=== PATIENT | female | born 1955 | race Caucasian/White ===

== ENCOUNTER 2016-10-21 18:50 | Emergency (ER) | payer MEDICAID, SELFPAY ==
[2016-10-21] MEDS ORDERED: diphenhydrAMINE 50 MG Cap PO ONE (19:39)
[2016-10-21] MEDS ORDERED: Ketorolac 60 MG/2 ML SDV IM ONE (19:39)
[2016-10-21] MEDS ORDERED: Ondansetron 4 MG Tab.DIS PO ONE (19:39)
[2016-10-21 21:10] VITALS: BP 130/78
--- NOTE | 2016-10-24 09:23 | ER ---
DATE SEEN: 10/21/2016 HISTORY OF PRESENT ILLNESS: The patient is a 61-year-old female, who comes to the emergency department with migraine. She has history of chronic migraines. Says she has tried her usual medications without benefit. This was started this morning, came on gradually. It has persisted. Does have some photophobia. Denies any nausea, vomiting, fevers, or chills. Tried taking Excedrin Migraine without relief. MEDICATIONS: 1. Celebrex. 2. Allopurinol. 3. Losartan. 4. Cymbalta. 5. Elavil. 6. Metformin. 7. Lipitor. ALLERGIES: Nitrofurantoin. PAST MEDICAL HISTORY: Headache, back pain, upper respiratory infection, depression. REVIEW OF SYSTEMS: RESPIRATORY: No shortness of breath. NEUROLOGICAL: No focal deficits. PHYSICAL EXAMINATION: VITAL SIGNS: She is afebrile. Vitally stable. HEENT: Pupils equal, round, react to light. Extraocular muscles intact. Funduscopic exam within normal limits. Oropharyngeal region clear. NECK: Supple. No lymphadenopathy. Full range of motion. EMERGENCY DEPARTMENT COURSE: She received 60 mg Toradol IM, Zofran 4 mg, and Benadryl 50 mg with improvement in her symptoms. ASSESSMENT: Acute on chronic migraine. PLAN: Continue current medications. Work on stress reduction. Follow up as needed. /[id number] NGA/TIESHA
== END 2016-10-21 20:00 | disposition home or self-care (01) ==
LOC: FB.ED 18:50
DX: G43.909 Migraine, unspecified, not intractable, without status migrainosus (principal); Z88.8 Allergy status to other drugs, medicaments and biological substances
CPT/HCPCS: 96372; 99282; A9270; J1885

== ENCOUNTER 2017-04-29 10:51 | Emergency (ER) | payer MEDICARE, OTHER ==
--- NOTE | 2017-04-29 11:17 | EDM.PDOC ---
ED HPI GENERAL MEDICAL PROBLEM - General Stated Complaint: BLOOD PRESSURE HIGH, Time Seen by Provider: 04/29/17 10:51 Source of Information: Reports: Patient History Limitations: Reports: No Limitations - History of Present Illness INITIAL COMMENTS - FREE TEXT/NARRATIVE: 61 years old w f came to the ed due to chronic low back pain and her BP measured 220/123 at home. She went to the clinic and sent to the ED for further care. On arrival the ed, her BP was improving. Pt has chronic low back pain and a h/o Kidney stones. No other acute medical issues. BP 143/83 RR 16 Pulse ox 97 Temp 36.5 pulse 84 Onset Date: 04/26/17 Onset Time: 06:00 Duration: Day(s):, Intermittent Location: Reports: Back Quality: Reports: Ache Severity: Mild Improves with: Reports: Rest Worsens with: Reports: Movement Context: Reports: Other (chronic back pain, elevated BP at home.) Associated Symptoms: Reports: No Other Symptoms Generalized Pain Score (Numeric/FACES): 5 - Related Data Allergies Allergy/AdvReac Type Severity Reaction Status Date / Time nitrofurantoin Allergy Rash Verified 04/29/17 12:22 [From Macrobid] nitrofurantoin Allergy Rash Verified 04/29/17 12:22 macrocrystalline [From Macrobid] Sulfa (Sulfonamide Allergy Rash Verified 04/29/17 12:22 Antibiotics) Home Meds: Home Meds Losartan/Hydrochlorothiazide [Losartan-HCTZ 50-12.5 MG] 1 tab PO DAILY 02/02/13 [History] Timolol Maleate [Timoptic-XE 0.5% Ophth Gel] 1 drop EYEBOTH BID 02/02/13 [ History] metFORMIN [Glucophage] 1 tab PO BID 02/02/13 [History] atorvaSTATin [Lipitor] 80 mg PO DAILY 01/29/14 [History] Amitriptyline [Elavil] 25 mg PO BEDTIME PRN 06/06/15 [History] Allopurinol [Zyloprim] 300 mg PO DAILY 10/21/16 [History] Past Medical History HEENT History: Reports: Cataract, Glaucoma, Impaired Vision Cardiovascular History: Reports: High Cholesterol, Hypertension Respiratory History: Reports: COPD Genitourinary History: Reports: Renal Calculus 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: Musculoskeletal History: Reports: Fibromyalgia Psychiatric History: Reports: Depression Endocrine/Metabolic History: Reports: Diabetes, Type II Social & Family History - Family History Family Medical History: Noncontributory - Tobacco Use Smoking Status *Q: Current Every Day Smoker Years of Tobacco use: 25 Packs/Tins Daily: 0.6 - Caffeine Use Caffeine Use: Reports: Coffee, Soda - Alcohol Use Days Per Week of Alcohol Use: 0 - Recreational Drug Use Recreational Drug Use: No ED ROS GENERAL - Review of Systems Review Of Systems: See Below Constitutional: Reports: No Symptoms HEENT: Reports: No Symptoms Respiratory: Reports: No Symptoms Cardiovascular: Reports: No Symptoms Endocrine: Reports: No Symptoms GI/Abdominal: Reports: No Symptoms : Reports: No Symptoms Musculoskeletal: Reports: Back Pain Skin: Reports: No Symptoms Neurological: Reports: No Symptoms Psychiatric: Reports: No Symptoms Hematologic/Lymphatic: Reports: No Symptoms Immunologic: Reports: No Symptoms ED EXAM,LOWER BACK PAIN/INJURY - Physical Exam Exam: See Below Exam Limited By: No Limitations General Appearance: Alert, WD/WN, No Apparent Distress Eye Exam: Bilateral Eye: Normal Inspection Ears: Normal External Exam, Normal Canal Nose: Normal Inspection Throat/Mouth: Normal Inspection Head: Atraumatic, Normocephalic Neck: Normal Inspection, Supple Respiratory/Chest: No Respiratory Distress, Lungs Clear, Normal Breath Sounds Cardiovascular: Normal Peripheral Pulses, Regular Rate, Rhythm GI/Abdominal: Normal Bowel Sounds (Female) Exam: Deferred Rectal (Female) Exam: Deferred Back Exam: Normal Inspection, Full Range of Motion Extremities: Normal Inspection, Normal Range of Motion, Non-Tender, No Pedal Edema Neurological: Alert, Normal Mood/Affect, Normal Dorsiflexion, CN II-XII Intact, Normal Plantar Flexion, Normal Gait, No Motor/Sensory Deficits, Oriented x 3 Psychiatric: Normal Affect, Normal Mood Skin Exam: Warm, Dry, Intact, Normal Color, No Rash Lymphatic: No Adenopathy Course - Vital Signs Text/Narrative:: 61 years old w f came to the ed due to chronic low back pain and her BP measured 220/123 at home. She went to the clinic and sent to the ED for further care. On arrival the ed, her BP was improving. Pt has chronic low back pain and a h/o Kidney stones. No other acute medical issues. BP 143/83 RR 16 Pulse ox 97 Temp 36.5 pulse 84 PE: Mid upper back pain, chronic Labs: UA neg for UTI and hematuria Impression: BP check, NIDDM, Chronic low back pain. Tx: None Reexam: Improved, BP was 135/87 on D/C Plan: D/C with instruction Last Recorded V/S: Last Vital Signs Temp 36.6 C 04/29/17 12:25 Pulse 77 04/29/17 12:45 Resp 14 04/29/17 12:45 BP 136/94 H 04/29/17 12:45 Pulse Ox 97 04/29/17 12:45 - Orders/Labs/Meds Labs: Laboratory Tests 04/29/17 Range/Units 11:45 Urine Color Yellow (YELLOW) Urine Appearance Slightly cloudy (CLEAR) Urine pH 5.0 (5.0-6.5) Ur Specific Ord 1.020 (1.010-1.025) Urine Protein Negative (NEGATIVE) mg/dL Urine Glucose (UA) Normal (NEGATIVE) mg/dL Urine Ketones Negative (NEGATIVE) mg/dL Urine Occult Blood Negative (NEGATIVE) Urine Nitrite Negative (NEGATIVE) Urine Bilirubin Negative (NEGATIVE) Urine Urobilinogen Normal (NEGATIVE) mg/dL Ur Leukocyte Esterase Negative (NEGATIVE) Urine WBC 0-5 (0) Ur Squamous Epith Cells Many H (NS,R,O) Urine Bacteria Moderate H (NS) Urine Yeast Few H (NS) Departure - Departure Time of Disposition: 12:52 Disposition: Home, Self-Care 01 Condition: Good Clinical Impression: Chronic back pain Qualifiers: Back pain location: thoracic back pain Back pain laterality: midline Qualified Code(s): M54.6 - Pain in thoracic spine - Discharge Information Referrals: Chris St MD [Primary Care Provider] - Forms: ED Department Discharge Additional Instructions: Please cont your current meds. please f/u, come back if your symptoms get worse acutely
[2017-04-29 12:46] VITALS: BP 136/94
== END 2017-04-29 12:55 | disposition home or self-care (01) ==
LOC: FB.ED 10:51
DX: M54.6 Pain in thoracic spine (principal); G89.29 Other chronic pain; I10 Essential (primary) hypertension; E78.00 Pure hypercholesterolemia, unspecified; E11.9 Type 2 diabetes mellitus without complications; F17.210 Nicotine dependence, cigarettes, uncomplicated; Z87.442 Personal history of urinary calculi; Z88.1 Allergy status to other antibiotic agents; Z88.2 Allergy status to sulfonamides; Z79.84 Long term (current) use of oral hypoglycemic drugs; Z79.899 Other long term (current) drug therapy
CPT/HCPCS: 81001; 99283

== ENCOUNTER 2017-07-21 20:47 | Emergency (ER) | payer MEDICARE, OTHER ==
[2017-07-21] MEDS ORDERED: Sodium Chloride 0.9% 1,000 ML IV SCH (21:05)
[2017-07-21 22:20] VITALS: BP 134/94
--- NOTE | 2017-07-23 12:44 | CR ---
INDICATION: Heart block. CHEST: An upright AP portable view of the chest revealed the heart to be enlarged. The aorta is tortuous with calcification in the arch. Overlying EKG leads are noted. A definite active infiltrate or effusion was not identified. Upper lung field pulmonary vasculature is slightly prominent, raising question of a mild or early CHF. This should be correlated clinically. Examination was compared with 04/19/2010 PA view. IMPRESSION: 1. No definite acute process - the possibility of mild or early CHF is a consideration. 2. ASHD with cardiomegaly. 3. Exogenous obesity. MTDD
--- NOTE | 2017-07-23 13:36 | ER ---
DATE SEEN: 07/21/2017 TIME SEEN: 2130 hours. CHIEF COMPLAINT: Dizziness. HISTORY OF PRESENT ILLNESS: This is a 62-year-old female known to me, who came in with dizziness, sudden onset. She felt like she passed out when she went to use the bathroom. She has type 2 diabetes, previously stable, tobacco abuse syndrome, and hypertension, that have been stable. She also has fibromyalgia. REVIEW OF SYSTEMS: She has no chest pain, no shortness of breath. MEDICATIONS: Reviewed. ALLERGIES: Reviewed. SOCIAL HISTORY: Smoker. FAMILY HISTORY: Noncontributory. PHYSICAL EXAMINATION: VITAL SIGNS: Blood pressure is 127/49, pulse 26, temperature 97.6, oxygenation 98% on room air. ENT: Negative. NECK: Supple. CARDIOVASCULAR: Bradycardia. No rales. No JVD. No extremity edema. No abdominal bruits. MENTAL STATUS: Alert. SKIN: No pallor or jaundice. No signs of shock. LABORATORIES: White cell count 12.5. Electrolytes are normal. Troponin is less than 0.17. EK-lead surface EKG revealed Mobitz type II AV block. IMPRESSION: Mobitz type II AV block. PLAN: 1 L of normal saline was given. Pacemaker pads were in place. I called [facility] and sent the patient for further treatment, perhaps a pacemaker placement. /[id number] VILMA/TIESHA
== END 2017-07-21 22:15 ==
LOC: FB.ED 20:47
DX: I44.1 Atrioventricular block, second degree (principal); I10 Essential (primary) hypertension; E11.9 Type 2 diabetes mellitus without complications; M79.7 Fibromyalgia; F17.200 Nicotine dependence, unspecified, uncomplicated
CPT/HCPCS: 36415; 71045; 80053; 82962; 83880; 84443; 84484; 85025; 93005; 93010; 96360; 99284; 99285; J7040

== ENCOUNTER 2017-08-01 15:17 | Emergency (ER) | payer MEDICARE, OTHER ==
--- NOTE | 2017-08-01 15:35 | EDM.PDOC ---
ED HPI GENERAL MEDICAL PROBLEM - General Stated Complaint: HIVES Time Seen by Provider: 08/01/17 15:17 Source of Information: Reports: Patient, Family History Limitations: Reports: No Limitations - History of Present Illness INITIAL COMMENTS - FREE TEXT/NARRATIVE: 62 y.o.w.,f with CAD on blood thinner, came to the ed due to a generalized rash since Sunday. Pt was seen by her PMD and Vistaril and cortison were prescribed. Pt came to the ed because he symptoms got worse slightly worse since Sunday. Pt did not have C/P.N/V/D, dizziness or lightheadedness, SOB or any other acute medical issues. BP 136/68, Temp 97.9 pulse ox 97% on RA. HR 86 RR 16. 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 - Related Data Allergies Allergy/AdvReac Type Severity Reaction Status Date / Time nitrofurantoin Allergy Rash Verified 07/21/17 21:31 [From Macrobid] nitrofurantoin Allergy Rash Verified 07/21/17 21:31 macrocrystalline [From Macrobid] Sulfa (Sulfonamide Allergy Rash Verified 07/21/17 21:31 Antibiotics) Home Meds: Home Meds Losartan/Hydrochlorothiazide [Losartan-HCTZ 50-12.5 MG] 1 tab PO DAILY 02/02/13 [History] Timolol Maleate [Timoptic-XE 0.5% Ophth Gel] 1 drop EYEBOTH BID 02/02/13 [ History] metFORMIN [Glucophage] 1 tab PO BID 02/02/13 [History] Allopurinol [Zyloprim] 300 mg PO DAILY 10/21/16 [History] Simvastatin [Zocor] 80 mg PO BEDTIME 07/21/17 [History] hydrOXYzine Pamoate [Vistaril] 100 mg PO BEDTIME PRN #10 cap 08/01/17 [Rx] Past Medical History HEENT History: Reports: Cataract, Glaucoma, Impaired Vision Cardiovascular History: Reports: High Cholesterol, Hypertension Respiratory History: Reports: COPD Genitourinary History: Reports: Renal Calculus 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: Musculoskeletal History: Reports: Fibromyalgia Psychiatric History: Reports: Depression Endocrine/Metabolic History: Reports: Diabetes, Type II - Infectious Disease History Infectious Disease History: Reports: Chicken Pox, Shingles - Past Surgical History Female Surgical History: Reports: Hysterectomy Social & Family History - Family History Family Medical History: Noncontributory - Tobacco Use Smoking Status *Q: Current Every Day Smoker Years of Tobacco use: 42 Packs/Tins Daily: 1 - Caffeine Use Caffeine Use: Reports: Coffee - Alcohol Use Days Per Week of Alcohol Use: 0 - Recreational Drug Use Recreational Drug Use: No ED ROS GENERAL - Review of Systems Review Of Systems: See Below Constitutional: Reports: No Symptoms HEENT: Reports: No Symptoms Respiratory: Reports: No Symptoms Cardiovascular: Reports: No Symptoms Endocrine: Reports: No Symptoms GI/Abdominal: Reports: No Symptoms : Reports: No Symptoms Musculoskeletal: Reports: No Symptoms Skin: Reports: Pruritis, Rash Neurological: Reports: No Symptoms Psychiatric: Reports: No Symptoms Hematologic/Lymphatic: Reports: No Symptoms Immunologic: Reports: No Symptoms ED EXAM, SKIN/RASH Exam: See Below Exam Limited By: No Limitations General Appearance: Alert, WD/WN, No Apparent Distress Eye Exam: Bilateral Eye: Normal Inspection Ears: Normal External Exam Nose: Normal Inspection Throat/Mouth: Normal Inspection, Normal Lips Head: Atraumatic, Normocephalic Neck: Normal Inspection, Supple, Non-Tender Respiratory/Chest: No Respiratory Distress, Lungs Clear, Normal Breath Sounds, No Accessory Muscle Use, Chest Non-Tender Cardiovascular: Normal Peripheral Pulses, Regular Rate, Rhythm, No Edema, No Gallop, No JVD Peripheral Pulses: 1+: Brachial (L) GI/Abdominal: Normal Bowel Sounds, Soft, Non-Tender (Female) Exam: Deferred Rectal (Female) Exam: Deferred Back Exam: Normal Inspection, Full Range of Motion Extremities: Normal Inspection, Normal Range of Motion, Non-Tender, No Pedal Edema Neurological: Alert, Oriented, CN II-XII Intact, Normal Cognition, Normal Gait, No Motor/Sensory Deficits Psychiatric: Normal Affect, Normal Mood Skin: Erythema Location, Skin: Generalized Characteristics: Urticarial Lymphatic: No Adenopathy Course - Vital Signs Text/Narrative:: 62 y.o.w.,f with CAD on blood thinner, came to the ed due to a generalized rash since Sunday. Pt was seen by her PMD and Vistaril and cortison were prescribed. Pt came to the ed because he symptoms got worse slightly worse since Sunday. Pt did not have C/P.N/V/D, dizziness or lightheadedness, SOB or any other acute medical issues. BP 136/68, Temp 97.9 pulse ox 97% on RA. HR 86 RR 16. PE: Urticarial Rash, generalized Impression: Urticarial rash, cause not determined. Tx: Vistaril 50mg IM Reexam: Improved Plan: D/C with instructions - Orders/Labs/Meds Meds: Medications Discontinued Medications Generic Name Dose Route Start Last Admin Trade Name Freq PRN Reason Stop Dose Admin Hydroxyzine HCl 50 mg 08/01/17 15:34 08/01/17 15:51 Vistaril IM 08/01/17 15:35 50 mg ONETIME ONE Administration Departure - Departure Time of Disposition: 15:46 Disposition: Home, Self-Care 01 Condition: Good Clinical Impression: Urticaria - Discharge Information Prescriptions: hydrOXYzine Pamoate [Vistaril] 100 mg PO BEDTIME PRN #10 cap PRN Reason: itch, rash Referrals: Chris St MD [Primary Care Provider] - Additional Instructions: Please increase water intake, please take the meds as recommended, please follow up with dermatology if the symptoms do not get better. Please come back to the ED if your symptoms get worse acutely.
[2017-08-01] MEDS: hydrOXYzine HCl 50 MG/ML SDV IM ONE (15:51)
[2017-08-01 20:05] VITALS: BP 136/68
== END 2017-08-01 16:15 | disposition home or self-care (01) ==
LOC: FB.ED 15:17
DX: L50.9 Urticaria, unspecified (principal); E78.00 Pure hypercholesterolemia, unspecified; I10 Essential (primary) hypertension; E11.9 Type 2 diabetes mellitus without complications; J44.9 Chronic obstructive pulmonary disease, unspecified; F17.210 Nicotine dependence, cigarettes, uncomplicated; Z79.84 Long term (current) use of oral hypoglycemic drugs; Z88.8 Allergy status to other drugs, medicaments and biological substances; Z88.2 Allergy status to sulfonamides; Z79.899 Other long term (current) drug therapy
CPT/HCPCS: 96372; 99282; J3410

== ENCOUNTER 2018-02-12 17:46 | Emergency (ER) | payer MEDICARE, OTHER ==
--- NOTE | 2018-02-12 18:34 | EDM.PDOC ---
ED HPI GENERAL MEDICAL PROBLEM - General Chief Complaint: Gastrointestinal Problem Stated Complaint: BLACK STOOLS Time Seen by Provider: 02/12/18 18:15 Source of Information: Reports: Patient History Limitations: Reports: No Limitations - History of Present Illness INITIAL COMMENTS - FREE TEXT/NARRATIVE: Viola reports diarrhea with black appearing stools over the past 4 days since starting a Z marilu 5 days ago for a bronchitis. Stools were stringy in texture, although semiformed today. Her chest congestion has resolved with the antibx. There was no other known exposure, fever, chills, nausea, vomiting, or constipation. She has been taking Lomotil for sxs relief. A SFOB was neg in the ED. - Related Data Allergies Allergy/AdvReac Type Severity Reaction Status Date / Time nitrofurantoin Allergy Rash Verified 02/12/18 18:05 [From Macrobid] nitrofurantoin Allergy Rash Verified 02/12/18 18:05 macrocrystalline [From Macrobid] Sulfa (Sulfonamide Allergy Rash Verified 02/12/18 18:05 Antibiotics) Home Meds: Home Meds Timolol Maleate [Timoptic-XE 0.5% Ophth Gel] 1 drop EYEBOTH DAILY 02/02/13 [ History] metFORMIN [Glucophage] 1 tab PO BID 02/02/13 [History] Allopurinol [Zyloprim] 300 mg PO DAILY 10/21/16 [History] hydrOXYzine pamoate [Vistaril] 100 mg PO BEDTIME PRN #10 cap 08/01/17 [Rx] Aspirin 81 mg PO DAILY 08/06/17 [History] Carvedilol 6.25 mg PO BID 08/06/17 [History] Cholecalciferol (Vitamin D3) [Vitamin D3] 2,000 unit PO DAILY 08/06/17 [History] Clopidogrel Bisulfate [Clopidogrel] 75 mg PO DAILY 08/06/17 [History] DULoxetine [Cymbalta] 30 mg PO DAILY 08/06/17 [History] Fluticasone Propionate [Flonase] 1 spray NASBOTH BID 08/06/17 [History] Losartan [Cozaar] 50 mg PO DAILY 08/06/17 [History] Nicotine Polacrilex [Nicotine Gum] 1 piece PO Q1H PRN 08/06/17 [History] Nicotine [Nicotine Patch] 7 mg TD DAILY 08/06/17 [History] Nicotine [Nicotine Patch] 21 mg TD DAILY PRN 08/06/17 [History] Nystatin/Triamcin [Nystatin-Triamcinolone Cream] 1 applic TOP TID PRN 08/06/17 [ History] Ondansetron [Zofran] 8 mg PO BEDTIME PRN 08/06/17 [History] atorvaSTATin [Lipitor] 40 mg PO BEDTIME 08/06/17 [History] cycloSPORINE [Restasis] 1 each EYEBOTH BID 08/06/17 [History] hydrOXYzine pamoate [Hydroxyzine Pamoate] 50 mg PO TID PRN 08/06/17 [History] methylPREDNISolone [Medrol] 1 tab PO ASDIRECTED 08/06/17 [History] Past Medical History HEENT History: Reports: Cataract, Glaucoma, Impaired Vision Cardiovascular History: Reports: High Cholesterol, Hypertension Respiratory History: Reports: COPD Genitourinary History: Reports: Renal Calculus 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: Musculoskeletal History: Reports: Fibromyalgia Psychiatric History: Reports: Depression Endocrine/Metabolic History: Reports: Diabetes, Type II - Infectious Disease History Infectious Disease History: Reports: Chicken Pox, Shingles - Past Surgical History Female Surgical History: Reports: Hysterectomy Social & Family History - Family History Family Medical History: Noncontributory - Caffeine Use Caffeine Use: Reports: Coffee ED ROS GENERAL - Review of Systems Review Of Systems: See Below Constitutional: Reports: No Symptoms HEENT: Reports: No Symptoms Respiratory: Reports: No Symptoms Cardiovascular: Reports: No Symptoms Endocrine: Reports: No Symptoms GI/Abdominal: Reports: Black Stool, Diarrhea : Reports: No Symptoms Musculoskeletal: Reports: No Symptoms Skin: Reports: No Symptoms Neurological: Reports: No Symptoms Psychiatric: Reports: Anxiety Hematologic/Lymphatic: Reports: No Symptoms Immunologic: Reports: No Symptoms ED EXAM, GI/ABD - Physical Exam Exam: See Below Exam Limited By: No Limitations General Appearance: Alert, WD/WN, No Apparent Distress, Anxious Head: Normocephalic Neck: Normal Inspection, Supple, Non-Tender, Full Range of Motion Respiratory/Chest: Lungs Clear, Normal Breath Sounds Cardiovascular: Normal Peripheral Pulses, Regular Rate, Rhythm, No Murmur GI/Abdominal Exam: Normal Bowel Sounds, Soft, Non-Tender, No Organomegaly, No Distention, No Mass (Female) Exam: Deferred Rectal (Female) Exam: Deferred, Other (green stool SFOB neg) Back Exam: Normal Inspection Extremities: Normal Inspection Neurological: Alert, Oriented, CN II-XII Intact, Normal Gait, No Motor/Sensory Deficits Psychiatric: Normal Affect, Anxious Skin Exam: Warm, Dry, Intact Lymphatic: No Adenopathy Course - Vital Signs Text/Narrative:: The SFOB was neg. Patient appeared relieved. Last Recorded V/S: Last Vital Signs Temp 37.0 C 02/12/18 18:00 Pulse 83 02/12/18 18:00 Resp 17 02/12/18 18:00 BP 166/101 H 02/12/18 18:00 Pulse Ox 97 02/12/18 18:00 Departure - Departure Time of Disposition: 18:45 Disposition: Home, Self-Care 01 Condition: Good Clinical Impression: Diarrhea - Discharge Information *PRESCRIPTION DRUG MONITORING PROGRAM REVIEWED*: Not Applicable *COPY OF PRESCRIPTION DRUG MONITORING REPORT IN PATIENT RA: Not Applicable Instructions: Diarrhea, Adult Forms: ED Department Discharge Additional Instructions: Follow up with primary care provider as needed. - Problem List & Annotations (1) Diarrhea SNOMED Code(s): 47511531 Code(s): R19.7 - DIARRHEA, UNSPECIFIED Status: Acute Current Visit: Yes Annotation/Comment:: I suggested Lomotil or Imodium if needed. She is off the Zithromycin. - Problem List Review Problem List Initiated/Reviewed/Updated: Yes - Assessment/Plan Plan: Follow up with PCP if needed.
[2018-02-12 18:59] VITALS: BP 139/90
== END 2018-02-12 18:40 | disposition home or self-care (01) ==
LOC: FB.ED 17:46
DX: R19.7 Diarrhea, unspecified (principal); E78.00 Pure hypercholesterolemia, unspecified; I10 Essential (primary) hypertension; J44.9 Chronic obstructive pulmonary disease, unspecified; E11.9 Type 2 diabetes mellitus without complications; F32.9 Major depressive disorder, single episode, unspecified; Z88.8 Allergy status to other drugs, medicaments and biological substances; Z88.2 Allergy status to sulfonamides; Z79.899 Other long term (current) drug therapy; Z79.84 Long term (current) use of oral hypoglycemic drugs; Z87.891 Personal history of nicotine dependence
CPT/HCPCS: 82272; 99284

== ENCOUNTER 2018-10-05 14:51 | Emergency (ER) | payer MEDICARE, OTHER ==
[2018-10-05] MEDS ORDERED: Meclizine 25 MG Tab PO STA (15:54)
--- NOTE | 2018-10-05 16:57 | EDM.PDOC ---
ED HPI GENERAL MEDICAL PROBLEM - General Chief Complaint: Neuro Symptoms/Deficits Stated Complaint: DIZZY WALKING UP STAIRS Time Seen by Provider: 10/05/18 14:58 Source of Information: Reports: Patient History Limitations: Reports: No Limitations - History of Present Illness INITIAL COMMENTS - FREE TEXT/NARRATIVE: 63 y.o.w.f with NIDDM, came to the ed due to Dizziness. Nehemiah Dizziness is worse when she turns her head to the left or right side. She had an MRI of her head and neck a few weeks ago which was nl, as per. No N/V/D no SOB, no palpitations , no CP or any other acute medical issues. BP 172/86 RR 18 Pulse ox 98% on RA Pulse 76 Temp 36.4 Onset Date: 10/05/18 Onset Time: 12:00 Duration: Hour(s):, Intermittent Location: Reports: Head Quality: Reports: Other (dizzy) Severity: Mild Improves with: Reports: Rest Worsens with: Reports: Movement Context: Reports: Sick Contact Associated Symptoms: Reports: No Other Symptoms Lower back Pain Score (Numeric/FACES): 8 - Related Data Allergies Allergy/AdvReac Type Severity Reaction Status Date / Time nitrofurantoin Allergy Rash Verified 05/11/18 18:56 [From Macrobid] nitrofurantoin Allergy Rash Verified 05/11/18 18:56 macrocrystalline [From Macrobid] Sulfa (Sulfonamide Allergy Rash Verified 05/11/18 18:56 Antibiotics) ticagrelor [From Brilinta] Allergy Hives Verified 10/05/18 15:01 Home Meds: Home Meds metFORMIN [Glucophage] 500 mg PO BID 02/02/13 [History] Allopurinol [Zyloprim] 300 mg PO DAILY 10/21/16 [History] Aspirin 81 mg PO DAILY 08/06/17 [History] Cholecalciferol (Vitamin D3) [Vitamin D3] 2,000 unit PO DAILY 08/06/17 [History] Fluticasone Propionate [Flonase] 1 spray NASBOTH BID 08/06/17 [History] Ondansetron [Zofran] 8 mg PO BEDTIME PRN 08/06/17 [History] cycloSPORINE [Restasis] 1 each EYEBOTH BID 08/06/17 [History] Carvedilol 25 mg PO BID 04/13/18 [History] Meclizine [Antivert] 25 mg PO Q6H PRN #12 tab 10/05/18 [Rx] Nitroglycerin 0.4 mg SL ASDIRECTED PRN 10/05/18 [History] Nystatin [Nystatin Crm] 1 appful ASDIRECTED PRN 10/05/18 [History] Simvastatin [Zocor] 40 mg PO BEDTIME 10/05/18 [History] Timolol Maleate 1 drop EYEBOTH DAILY 10/05/18 [History] Past Medical History HEENT History: Reports: Glaucoma, Impaired Vision Cardiovascular History: Reports: High Cholesterol, Hypertension, [place] Respiratory History: Reports: COPD Genitourinary History: Reports: Renal Calculus POULTRY HUSBANDMAN History: Reports: Polycystic Ovaries 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 POULTRY HUSBANDMAN History: G0 Musculoskeletal History: Reports: Fibromyalgia Neurological History: Reports: Migraines Psychiatric History: Reports: Anxiety, Depression Endocrine/Metabolic History: Reports: Diabetes, Type II, Obesity/BMI 30+ Dermatologic History: Reports: Other (See Below) - Infectious Disease History Infectious Disease History: Reports: Chicken Pox, Shingles - Past Surgical History HEENT Surgical History: Reports: Adenoidectomy, Naso-Sinus Surgery, Oral Surgery , Tonsillectomy GI Surgical History: Reports: Appendectomy, Cholecystectomy, Colonoscopy Female Surgical History: Reports: Breast Reduction, Hysterectomy, Lithotripsy /ESWL, Salpingo-Oophorectomy, Ureteral Stent, Other (See Below) Other Female Surgeries/Procedures: bladder lift x 2 Musculoskeletal Surgical History: Reports: Carpal Tunnel, Knee Replacement, Other (See Below) Other Musculoskeletal Surgeries/Procedures:: L knee replacement, bilat carpal tunnel Dermatological Surgical History: Reports: Other (See Below) Social & Family History - Family History Family Medical History: Noncontributory - Tobacco Use Smoking Status *Q: Former Smoker Years of Tobacco use: 40 Used Tobacco, but Quit: Yes Month/Year Tobacco Last Used: 2017 - Caffeine Use Caffeine Use: Reports: Coffee, Soda, Tea - Recreational Drug Use Recreational Drug Use: No ED ROS GENERAL - Review of Systems Review Of Systems: See Below Constitutional: Reports: No Symptoms HEENT: Reports: No Symptoms Respiratory: Reports: No Symptoms Cardiovascular: Reports: No Symptoms Endocrine: Reports: No Symptoms GI/Abdominal: Reports: No Symptoms : Reports: No Symptoms Musculoskeletal: Reports: No Symptoms Skin: Reports: No Symptoms Neurological: Reports: Dizziness Psychiatric: Reports: No Symptoms Hematologic/Lymphatic: Reports: No Symptoms Immunologic: Reports: No Symptoms ED EXAM, NEURO - Physical Exam Exam: See Below Exam Limited By: No Limitations General Appearance: Alert, WD/WN, Mild Distress Eye Exam: Bilateral Eye: Nystagmus Ears: Normal External Exam Nose: Normal Inspection Throat/Mouth: Normal Inspection Head Exam: Atraumatic, Normocephalic Neck: Normal Inspection, Supple, Non-Tender Respiratory/Chest: No Respiratory Distress, Lungs Clear Cardiovascular: Normal Peripheral Pulses GI/Abdominal: Normal Bowel Sounds, Soft (Female) Exam: Deferred Rectal (Female) Exam: Deferred Neurological: Alert, Normal Mood/Affect, Normal Dorsiflexion, CN II-XII Intact, Normal Gait Back Exam: Normal Inspection, Full Range of Motion Extremities: Normal Inspection, Normal Range of Motion Psychiatric: Normal Affect, Normal Mood Skin Exam: Warm, Dry, Intact, Normal Color, No Rash EKG INTERPRETATION EKG Date: 10/05/18 Time: 15:10 Rhythm: NSR Rate (Beats/Min): 76 [place]: LAD-Left [place]il[place] Deviation P-Wave: Present QRS: Normal ST-T: Normal QT: Normal Comparison: NA - No Prior EKG Course - Vital Signs Text/Narrative:: 63 y.o.w.f with NIDDM, came to the ed due to Dizziness. Nehemiah Dizziness is worse when she turns her head to the left or right side. She had an MRI of her head and neck a few weeks ago which was nl, as per. No N/V/D no SOB, no palpitations , no CP or any other acute medical issues. BP 172/86 RR 18 Pulse ox 98% on RA Pulse 76 Temp 36.4 PE: WNWDWF with BPPV (Benign Paroxysmal positional Vertigo) Impression: vertigo Tx: Antivert Reexam: Improved, pt was ambulating well on D/C Plan: D/C with instructions Last Recorded V/S: Last Vital Signs Temp 36.4 C 10/05/18 14:58 Pulse 73 10/05/18 17:00 Resp 18 10/05/18 17:00 BP 153/92 H 10/05/18 17:00 Pulse Ox 97 10/05/18 17:00 Orthostatic Blood Pressure [ 150/93 Standing] Orthostatic Blood Pressure [ 153/100 Sitting] Orthostatic Blood Pressure [ 160/86 Supine] - Orders/Labs/Meds Meds: Medications Discontinued Medications Generic Name Dose Route Start Last Admin Trade Name Guido PRN Reason Stop Dose Admin Meclizine HCl 50 mg 10/05/18 15:54 10/05/18 16:01 Antivert PO 10/05/18 15:55 50 mg ONETIME STA Administration Departure - Departure Time of Disposition: 16:57 Disposition: Home, Self-Care 01 Condition: Good Clinical Impression: Vertigo, Laceration - Discharge Information Prescriptions: Meclizine [Antivert] 25 mg PO Q6H PRN #12 tab PRN Reason: diziness Instructions: Meclizine tablets or capsules, Vertigo, [id number] Referrals: Chris St MD [Primary Care Provider] - Forms: ED Department Discharge Additional Instructions: Please increase water intake, take Antivert as recommended, please follow up with your regular MD as needed at clinic, come back if your symptoms get worse acutely
[2018-10-05 17:00] VITALS: BP 153/92
== END 2018-10-05 17:06 | disposition home or self-care (01) ==
LOC: FB.ED 14:51
DX: H81.10 Benign paroxysmal vertigo, unspecified ear (principal); E78.00 Pure hypercholesterolemia, unspecified; I10 Essential (primary) hypertension; I25.2 Old myocardial infarction; J44.9 Chronic obstructive pulmonary disease, unspecified; F41.9 Anxiety disorder, unspecified; F32.9 Major depressive disorder, single episode, unspecified; E11.9 Type 2 diabetes mellitus without complications; Z87.891 Personal history of nicotine dependence; Z88.8 Allergy status to other drugs, medicaments and biological substances; Z79.82 Long term (current) use of aspirin; Z79.899 Other long term (current) drug therapy
CPT/HCPCS: 99283; A9270

== ENCOUNTER 2019-02-03 13:59 | Emergency (ER) | payer MEDICARE, OTHER ==
[2019-02-03] MEDS ORDERED: Meclizine 25 MG Tab PO STA (14:28)
--- NOTE | 2019-02-03 14:38 | EDM.PDOC ---
ED HPI GENERAL MEDICAL PROBLEM - General Chief Complaint: Neuro Symptoms/Deficits Stated Complaint: VIRTIGO Time Seen by Provider: 02/03/19 13:59 Source of Information: Reports: Patient History Limitations: Reports: No Limitations - History of Present Illness INITIAL COMMENTS - FREE TEXT/NARRATIVE: 63 y.o.w.f came to the ed because of dizziness. Pt was seen by ENT, biomedical engineering internship and other specialities and nobody could help her vertigo to improve. She was prescribed 12.5 mg of Antivert once daily which did not improve her symptoms. Pt under went a table tilt test, various hearing tests, which were all neg. There was no trauma. Pt underwent an MRI of here head a few months ago which was found to be neg as well. Pt feet occ a "head pressure" . No other acute med issue. BP 127/54 RR 18 Pulse oc 94% on pulse 64 Temp 36.8 Onset Date: 01/14/19 Onset Time: 14:39 Duration: Week(s):, Getting Worse, Intermittent Location: Reports: Face Quality: Reports: Same as Previous Episode Severity: Moderate Improves with: Reports: Rest Worsens with: Reports: None Context: Reports: Other Associated Symptoms: Reports: No Other Symptoms - Related Data Allergies Allergy/AdvReac Type Severity Reaction Status Date / Time nitrofurantoin Allergy Rash Verified 02/03/19 14:10 [From Macrobid] nitrofurantoin Allergy Rash Verified 02/03/19 14:10 macrocrystalline [From Macrobid] Sulfa (Sulfonamide Allergy Rash Verified 02/03/19 14:10 Antibiotics) ticagrelor [From Brilinta] Allergy Hives Verified 02/03/19 14:10 Home Meds: Home Meds metFORMIN [Glucophage] 500 mg PO BID 02/02/13 [History] Allopurinol [Zyloprim] 300 mg PO DAILY 10/21/16 [History] Aspirin 81 mg PO DAILY 08/06/17 [History] Cholecalciferol (Vitamin D3) [Vitamin D3] 2,000 unit PO DAILY 08/06/17 [History] Fluticasone Propionate [Flonase] 1 spray NASBOTH BID 08/06/17 [History] cycloSPORINE [Restasis] 1 each EYEBOTH BID 08/06/17 [History] Carvedilol 25 mg PO BID 04/13/18 [History] Meclizine [Antivert] 25 mg PO Q6H PRN #12 tab 10/05/18 [Rx] Nitroglycerin 0.4 mg SL ASDIRECTED PRN 10/05/18 [History] Nystatin [Nystatin Crm] 1 appful TOP ASDIRECTED PRN 10/05/18 [History] Simvastatin [Zocor] 40 mg PO DAILY 10/05/18 [History] Timolol Maleate 1 drop EYEBOTH DAILY 10/05/18 [History] Meclizine [Antivert] 25 mg PO Q6H PRN #20 tab.chew 02/03/19 [Rx] Past Medical History HEENT History: Reports: Glaucoma, Impaired Vision Cardiovascular History: Reports: High Cholesterol, Hypertension, [place] Respiratory History: Reports: COPD Genitourinary History: Reports: Renal Calculus 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: Reports: Polycystic Ovaries 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 Musculoskeletal History: Reports: Fibromyalgia Neurological History: Reports: Migraines Psychiatric History: Reports: Anxiety, Depression Endocrine/Metabolic History: Reports: Diabetes, Type II, Obesity/BMI 30+ Dermatologic History: Reports: Other (See Below) - Infectious Disease History Infectious Disease History: Reports: Chicken Pox, Shingles - Past Surgical History HEENT Surgical History: Reports: Adenoidectomy, Naso-Sinus Surgery, Oral Surgery , Tonsillectomy GI Surgical History: Reports: Appendectomy, Cholecystectomy, Colonoscopy Female Surgical History: Reports: Breast Reduction, Hysterectomy, Lithotripsy /ESWL, Salpingo-Oophorectomy, Ureteral Stent, Other (See Below) Other Female Surgeries/Procedures: bladder lift x 2 Musculoskeletal Surgical History: Reports: Carpal Tunnel, Knee Replacement, Other (See Below) Other Musculoskeletal Surgeries/Procedures:: L knee replacement, bilat carpal tunnel Dermatological Surgical History: Reports: Other (See Below) Social & Family History - Family History Family Medical History: Noncontributory - Tobacco Use Smoking Status *Q: Former Smoker Years of Tobacco use: 20 Packs/Tins Daily: 1 Used Tobacco, but Quit: Yes Month/Year Tobacco Last Used: 1 year ago - Caffeine Use Caffeine Use: Reports: Coffee - Recreational Drug Use Recreational Drug Use: No ED ROS GENERAL - Review of Systems Review Of Systems: See Below Constitutional: Reports: No Symptoms HEENT: Reports: No Symptoms Respiratory: Reports: No Symptoms Cardiovascular: Reports: No Symptoms Endocrine: Reports: No Symptoms GI/Abdominal: Reports: No Symptoms : Reports: No Symptoms Musculoskeletal: Reports: No Symptoms Skin: Reports: No Symptoms Neurological: Reports: Dizziness Psychiatric: Reports: No Symptoms Hematologic/Lymphatic: Reports: No Symptoms Immunologic: Reports: No Symptoms ED EXAM, NEURO - Physical Exam Exam: See Below Exam Limited By: No Limitations General Appearance: Alert, WD/WN, Mild Distress, Moderate Distress Eye Exam: Bilateral Eye: Nystagmus Ears: Normal External Exam, Normal Canal Nose: Normal Inspection, Normal Mucosa Throat/Mouth: Normal Lips, Normal Voice, No Airway Compromise Head Exam: Atraumatic, Normocephalic Neck: Normal Inspection, Supple, Non-Tender Respiratory/Chest: No Respiratory Distress, Lungs Clear, Normal Breath Sounds Cardiovascular: Normal Peripheral Pulses, Regular Rate, Rhythm, No Edema, No Gallop GI/Abdominal: Normal Bowel Sounds, Soft, Non-Tender, No Organomegaly, No Abnormal Bruit, No Mass, Pelvis Stable (Female) Exam: Deferred Rectal (Female) Exam: Deferred Neurological: Alert, Normal Mood/Affect, Normal Dorsiflexion, CN II-XII Intact, Normal Gait, Oriented x 3 Back Exam: Normal Inspection, Full Range of Motion Extremities: Normal Inspection, Normal Range of Motion, Non-Tender Psychiatric: Normal Affect, Normal Mood Skin Exam: Warm, Dry, Intact, Normal Color, No Rash Course - Vital Signs Text/Narrative:: 63 y.o.w.f came to the ed because of dizziness. Pt was seen by ENT, biomedical engineering internship and other specialities and nobody could help her vertigo to improve. She was prescribed 12.5 mg of Antivert once daily which did not improve her symptoms. Pt under went a table tilt test, various hearing tests, which were all neg. There was no trauma. Pt underwent an MRI of here head a few months ago which was found to be neg as well. Pt feet occ a "head pressure" . No other acute med issue. BP 127/54 RR 18 Pulse oc 94% on pulse 64 Temp 36.8 PE: WNWD W F with [place] [facility] was pos Impression: BPPV (Vertigo) Tx: Antivert 50 mg Reexam: Improved 80%, pt requested to be D/C 2.[address] Cain Neurologist, [place]: F/U with Dr. De León at [place], neurologist Plan: D/C with instructions Last Recorded V/S: Last Vital Signs Temp 36.7 C 02/03/19 15:20 Pulse 75 02/03/19 15:20 Resp 17 02/03/19 15:20 BP 142/86 H 02/03/19 15:20 Pulse Ox 96 02/03/19 15:20 - Orders/Labs/Meds Meds: Medications Discontinued Medications Generic Name Dose Route Start Last Admin Trade Name Freq PRN Reason Stop Dose Admin Meclizine HCl 50 mg 02/03/19 14:28 02/03/19 14:33 Antivert PO 02/03/19 14:29 50 mg ONETIME STA Administration Departure - Departure Time of Disposition: 15:16 Disposition: Home, Self-Care 01 Condition: Good Clinical Impression: Vertigo - Discharge Information Prescriptions: Meclizine [Antivert] 25 mg PO Q6H PRN #20 tab.chew PRN Reason: Dizziness Instructions: Vertigo, [id number] Referrals: Chris St MD [Primary Care Provider] - Forms: ED Department Discharge Additional Instructions: Please f/u at the [facility] at [place] with Dr. Mantilla, Neurologist, who specializes in Vertigo. Please take thge meds as recommended, come back if your symptom get worse acutely
[2019-02-03 17:38] VITALS: BP 142/86; PULSE 75
== END 2019-02-03 15:30 | disposition home or self-care (01) ==
LOC: FB.ED 13:59
DX: R42 Dizziness and giddiness (principal); I10 Essential (primary) hypertension; I25.2 Old myocardial infarction; J44.9 Chronic obstructive pulmonary disease, unspecified; E78.00 Pure hypercholesterolemia, unspecified; F41.9 Anxiety disorder, unspecified; F32.9 Major depressive disorder, single episode, unspecified; G43.909 Migraine, unspecified, not intractable, without status migrainosus; E11.9 Type 2 diabetes mellitus without complications; Z87.891 Personal history of nicotine dependence; Z88.8 Allergy status to other drugs, medicaments and biological substances; Z88.2 Allergy status to sulfonamides; Z79.82 Long term (current) use of aspirin; Z79.899 Other long term (current) drug therapy; Z79.84 Long term (current) use of oral hypoglycemic drugs
CPT/HCPCS: 99283; A9270

== ENCOUNTER 2019-05-15 21:08 | Emergency (ER) | payer MEDICARE, OTHER ==
[2019-05-15 21:42] VITALS: BP 169/84; PULSE 62
--- NOTE | 2019-05-15 21:56 | EDM.PDOC ---
ED HPI GENERAL MEDICAL PROBLEM - General Chief Complaint: Cardiovascular Problem Stated Complaint: BLOOD PRESSURE Time Seen by Provider: 05/15/19 21:30 Source of Information: Reports: Patient, Old Records History Limitations: Reports: No Limitations - History of Present Illness INITIAL COMMENTS - FREE TEXT/NARRATIVE: Viola comes into [facility] ED with sxs of pressure in the posterior neck, some lt headiness, and worry that her BP is elevated placing her at risk for a stroke or heart attack. There is no palpitations, chest pain, SOB, Gi upset, sweats, polydipsia or polyuria. She has a PMH of CAD and [place], and completed cardiac rehab successfully. A brother had a stroke last year. Her father had a heart attack in the past. - Related Data Allergies Allergy/AdvReac Type Severity Reaction Status Date / Time nitrofurantoin Allergy Rash Verified 02/03/19 14:10 [From Macrobid] nitrofurantoin Allergy Rash Verified 02/03/19 14:10 macrocrystalline [From Macrobid] Sulfa (Sulfonamide Allergy Rash Verified 02/03/19 14:10 Antibiotics) ticagrelor [From Brilinta] Allergy Hives Verified 02/03/19 14:10 Home Meds: Home Meds metFORMIN [Glucophage] 500 mg PO BID 02/02/13 [History] allopurinoL [Zyloprim] 300 mg PO DAILY 10/21/16 [History] Aspirin 81 mg PO DAILY 08/06/17 [History] Cholecalciferol (Vitamin D3) [Vitamin D3] 2,000 unit PO DAILY 08/06/17 [History] Fluticasone Propionate [Flonase] 1 spray NASBOTH BID 08/06/17 [History] cycloSPORINE [Restasis] 1 each EYEBOTH BID 08/06/17 [History] carvediloL [Carvedilol] 25 mg PO BID 04/13/18 [History] Meclizine [Antivert] 25 mg PO Q6H PRN #12 tab 10/05/18 [Rx] Nitroglycerin 0.4 mg SL ASDIRECTED PRN 10/05/18 [History] Nystatin [Nystatin Crm] 1 appful TOP ASDIRECTED PRN 10/05/18 [History] Simvastatin [Zocor] 40 mg PO DAILY 10/05/18 [History] Timolol Maleate 1 drop EYEBOTH DAILY 10/05/18 [History] Meclizine [Antivert] 25 mg PO Q6H PRN #20 tab.chew 02/03/19 [Rx] Past Medical History HEENT History: Reports: Glaucoma, Impaired Vision Cardiovascular History: Reports: High Cholesterol, Hypertension, [place] Respiratory History: Reports: COPD Genitourinary History: Reports: Renal Calculus 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: Polycystic Ovaries 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 Musculoskeletal History: Reports: Fibromyalgia Neurological History: Reports: Migraines Psychiatric History: Reports: Anxiety, Depression Endocrine/Metabolic History: Reports: Diabetes, Type II, Obesity/BMI 30+ Dermatologic History: Reports: Other (See Below) - Infectious Disease History Infectious Disease History: Reports: Chicken Pox, Shingles - Past Surgical History HEENT Surgical History: Reports: Adenoidectomy, Naso-Sinus Surgery, Oral Surgery , Tonsillectomy GI Surgical History: Reports: Appendectomy, Cholecystectomy, Colonoscopy Female Surgical History: Reports: Breast Reduction, Hysterectomy, Lithotripsy /ESWL, Salpingo-Oophorectomy, Ureteral Stent, Other (See Below) Other Female Surgeries/Procedures: bladder lift x 2 Musculoskeletal Surgical History: Reports: Carpal Tunnel, Knee Replacement, Other (See Below) Other Musculoskeletal Surgeries/Procedures:: L knee replacement, bilat carpal tunnel Dermatological Surgical History: Reports: Other (See Below) Social & Family History - Family History Family Medical History: Noncontributory - Tobacco Use Smoking Status *Q: Never Smoker Second Hand Smoke Exposure: No - Caffeine Use Caffeine Use: Reports: Coffee - Recreational Drug Use Recreational Drug Use: No ED ROS GENERAL - Review of Systems Review Of Systems: Comprehensive ROS is negative, except as noted in HPI. ED EXAM, GENERAL - Physical Exam Exam: See Below Exam Limited By: No Limitations General Appearance: Alert, WD/WN, No Apparent Distress, Anxious Eye Exam: Bilateral Eye: EOMI, Normal Inspection, PERRL Ears: Normal External Exam, Normal TMs Nose: Normal Inspection Throat/Mouth: Normal Inspection, Normal Oropharynx Head: Normocephalic Neck: Normal Inspection, Supple, Full Range of Motion Respiratory/Chest: No Respiratory Distress, Lungs Clear, No Accessory Muscle Use , Chest Non-Tender Cardiovascular: No Edema, No JVD, No Murmur, Bradycardia GI/Abdominal: Normal Bowel Sounds, Soft, Non-Tender, No Organomegaly, No Distention, No Mass (Female) Exam: Deferred Rectal (Female) Exam: Deferred Back Exam: Normal Inspection Extremities: Normal Inspection Neurological: Alert, Oriented, CN II-XII Intact, Normal Cognition, Normal Gait, No Motor/Sensory Deficits Psychiatric: Normal Affect, Anxious Skin Exam: Warm, Dry, Intact, Normal Color Lymphatic: No Adenopathy Course - Vital Signs Text/Narrative:: Following assessment, I obtained a 12 lead ekg, noting sinus bradycardia. The chest x ray was satisfactory and unchanged. The CBC, CMP, CRP, ddimer, and Troponin were all baseline. She was placed on an external monitor, and BPs improved 123/84, 130/92. She remained apprehensive, fixated on a variety of sxs annotated in PMH. Last Recorded V/S: Last Vital Signs Temp 36.7 C 05/15/19 21:42 Pulse 62 05/15/19 21:42 Resp 18 05/15/19 21:42 BP 169/84 H 05/15/19 21:42 Pulse Ox 98 05/15/19 21:42 - Orders/Labs/Meds Orders: Active Orders 24 hr Category Date Time Status EKG Documentation Completion [RC] ASDIRECTED Care 05/15/19 21:53 Active Chest 2V [CR] Stat Exams 05/15/19 21:52 Taken EKG 12 Lead [EK] Routine Ther 05/15/19 21:53 Ordered Labs: Laboratory Tests 05/15/19 05/15/19 05/15/19 Range/Units 22:00 22:00 22:00 WBC 6.6 (4.5-12.0) X10-3/uL RBC 4.26 (3.23-5.20) x10(6)uL Hgb 12.6 (11.5-15.5) g/dL Hct 38.3 (30.0-51.3) % MCV 90.1 (80-96) fL MCH 29.7 (27.7-33.6) pg MCHC 33.0 (32.2-35.4) g/dL RDW 13.3 (11.5-15.5) % Plt Count 235 (125-369) X10(3)uL MPV 7.5 (7.4-10.4) fL Neut % (Auto) 59.3 (46-82) % Lymph % (Auto) 30.6 (13-37) % Rosebud % (Auto) 6.3 (4-12) % Eos % (Auto) 3 (1.0-5.0) % Baso % (Auto) 1 (0-2) % Neut # (Auto) 4.0 (1.6-8.3) # Lymph # (Auto) 2.0 (0.6-5.0) # Rosebud # (Auto) 0.4 (0.0-1.3) # Eos # (Auto) 0.2 (0.0-0.8) # Baso # (Auto) 0.0 (0.0-0.2) # D-Dimer, Quantitative 0.56 (0.0-0.59) mg/LFEU Sodium 140 (135-145) mmol/L Potassium 4.5 (3.5-5.3) mmol/L Chloride 104 (100-110) mmol/L Carbon Dioxide 27 (21-32) mmol/L BUN 16 (7-18) mg/dL Creatinine 1.0 (0.55-1.02) mg/dL Est Cr Clr Drug Dosing 48.25 mL/min Estimated GFR (MDRD) 56 L (>60) BUN/Creatinine Ratio 16.0 (9-20) Glucose 128 H (80-116) mg/dL Calcium 9.1 (8.6-10.2) mg/dL Total Bilirubin 0.3 (0.1-1.3) mg/dL AST 25 D (5-25) IU/L ALT 35 D (12-36) U/L Alkaline Phosphatase 84 (56-112) IU/L Troponin I (<0.017-0.056) ng/mL C-Reactive Protein (0.5-0.9) mg/dL Total Protein 6.9 (6.0-8.0) g/dL Albumin 3.7 (3.2-4.6) g/dL Globulin 3.2 g/dL Albumin/Globulin Ratio 1.2 05/15/19 Range/Units 22:00 WBC (4.5-12.0) X10-3/uL RBC (3.23-5.20) x10(6)uL Hgb (11.5-15.5) g/dL Hct (30.0-51.3) % MCV (80-96) fL MCH (27.7-33.6) pg MCHC (32.2-35.4) g/dL RDW (11.5-15.5) % Plt Count (125-369) X10(3)uL MPV (7.4-10.4) fL Neut % (Auto) (46-82) % Lymph % (Auto) (13-37) % Rose[place] % (Auto) (4-12) % Eos % (Auto) (1.0-5.0) % Baso % (Auto) (0-2) % Neut # (Auto) (1.6-8.3) # Lymph # (Auto) (0.6-5.0) # Rosebud # (Auto) (0.0-1.3) # Eos # (Auto) (0.0-0.8) # Baso # (Auto) (0.0-0.2) # D-Dimer, Quantitative (0.0-0.59) mg/LFEU Sodium (135-145) mmol/L Potassium (3.5-5.3) mmol/L Chloride (100-110) mmol/L Carbon Dioxide (21-32) mmol/L BUN (7-18) mg/dL Creatinine (0.55-1.02) mg/dL Est Cr Clr Drug Dosing mL/min Estimated GFR (MDRD) (>60) BUN/Creatinine Ratio (9-20) Glucose (80-116) mg/dL Calcium (8.6-10.2) mg/dL Total Bilirubin (0.1-1.3) mg/dL AST (5-25) IU/L ALT (12-36) U/L Alkaline Phosphatase (56-112) IU/L Troponin I < 0.017 L (<0.017-0.056) ng/mL C-Reactive Protein 0.6 (0.5-0.9) mg/dL Total Protein (6.0-8.0) g/dL Albumin (3.2-4.6) g/dL Globulin g/dL Albumin/Globulin Ratio Departure - Departure Time of Disposition: 22:45 Disposition: Home, Self-Care 01 Condition: Good Clinical Impression: Labile hypertension, Anxiety about health Referrals: PCP,None [Primary Care Provider] - Forms: ED Department Discharge Sepsis Event Note - Evaluation Sepsis Screening Result: No Definite Risk - Focused Exam Vital Signs: Vital Signs Temp Pulse Resp BP Pulse Ox 05/15/19 21:42 36.7 C 62 18 169/84 H 98 Date Exam was Performed: 05/15/19 Time Exam was Performed: 22:42 - Problem List & Annotations (1) Anxiety about health SNOMED Code(s): 102264623 Code(s): F41.8 - OTHER SPECIFIED ANXIETY DISORDERS Status: Acute Current Visit: Yes Annotation/Comment:: Features for a generalized anxiety disorder that would benefit from psychological intervention. (2) Labile hypertension SNOMED Code(s): 897087105 Code(s): R09.89 - OTH SYMPTOMS AND SIGNS INVOLVING THE CIRC AND RESP SYSTEMS Status: Acute Current Visit: Yes Annotation/Comment:: Viola has an appt with PCP tomorrow. I suggested downward adjustment of Coreg, and addition of another BP med to manage hypertension. She will discuss with PCP. - Problem List Review Problem List Initiated/Reviewed/Updated: Yes - My Orders Last 24 Hours: My Active Orders 05/15/19 21:52 Chest 2V [CR] Stat 05/15/19 21:53 EKG Documentation Completion [RC] ASDIRECTED EKG 12 Lead [EK] Routine - Assessment/Plan Last 24 Hours: My Active Orders 05/15/19 21:52 Chest 2V [CR] Stat 05/15/19 21:53 EKG Documentation Completion [RC] ASDIRECTED EKG 12 Lead [EK] Routine Plan: Follow up with PCP.
== END 2019-05-15 23:05 | disposition home or self-care (01) ==
LOC: FB.ED 21:08
DX: I10 Essential (primary) hypertension (principal); F41.9 Anxiety disorder, unspecified; J44.9 Chronic obstructive pulmonary disease, unspecified; E11.9 Type 2 diabetes mellitus without complications; E66.9 Obesity, unspecified; Z68.33 Body mass index [BMI] 33.0-33.9, adult; Z79.82 Long term (current) use of aspirin; Z79.84 Long term (current) use of oral hypoglycemic drugs; Z88.2 Allergy status to sulfonamides; Z88.8 Allergy status to other drugs, medicaments and biological substances
CPT/HCPCS: 36415; 71046; 80053; 84484; 85025; 85379; 86140; 93005; 99283; 99284-25

== ENCOUNTER 2019-08-06 14:19 | Emergency (ER) | payer MEDICARE, OTHER ==
[2019-08-06] MEDS ORDERED: Ondansetron 4 MG/2 ML SDV IVPUSH ONE ×2 (14:20→17:53)
[2019-08-06] MEDS: Atropine 0.1 MG/ML 10 ML Syringe IVPUSH PRN ×3 (14:33→14:48)
[2019-08-06] MEDS ORDERED: DOPamine/Dextrose 5%-Water 400 MG/250 ML BAG IV SCH (14:49)
[2019-08-06] MEDS ORDERED: Sodium Chloride 0.9% 1,000 ML IV ONE (14:49)
[2019-08-06] MEDS ORDERED: fentaNYL 100 MCG/2 ML SDV ONE (15:06)
[2019-08-06] MEDS ORDERED: fentaNYL 100 MCG/2 ML SDV IVPUSH ONE (15:07)
--- NOTE | 2019-08-06 15:11 | EDM.PDOC ---
ED HPI GENERAL MEDICAL PROBLEM - General Chief Complaint: Cardiovascular Problem Stated Complaint: DIZZY, FEELING SICK Time Seen by Provider: 08/06/19 14:20 Source of Information: Reports: Patient, EMS, EMS Notes Reviewed History Limitations: Reports: No Limitations - History of Present Illness INITIAL COMMENTS - FREE TEXT/NARRATIVE: Viola arrives by EMS following collapse at a pharmacy this afternoon, EMS call at 13:37. Upon arrival, patient was on the floor, pale, diaphoretic, and awake. Her pulse was less that 30 by palpation, subsequent monitor confirming 3rd degree heart block. 1 dose of Atropine 0.5 mg IV was given without effect. EMS subsequent applied transvenous pacing, capturing at 80 mA at a rate of 70. Her BP was 90/60 during transport. In the ED, labs were drawn, additional IV access obtained and 2 addn. doses of Atropine 0.5 mg IV administered without effect. A dopamine infusion at 5 mcg/min was subsequently started just prior to transfer. Air transport was unavailable, so ground EMS transferred to [facility] per Dr. Hussein. - Related Data Allergies Allergy/AdvReac Type Severity Reaction Status Date / Time nitrofurantoin Allergy Rash Verified 02/03/19 14:10 [From Macrobid] nitrofurantoin Allergy Rash Verified 02/03/19 14:10 macrocrystalline [From Macrobid] Sulfa (Sulfonamide Allergy Rash Verified 02/03/19 14:10 Antibiotics) ticagrelor [From Brilinta] Allergy Hives Verified 02/03/19 14:10 Home Meds: Home Meds metFORMIN [Glucophage] 500 mg PO BID 02/02/13 [History] allopurinoL [Zyloprim] 300 mg PO DAILY 10/21/16 [History] Aspirin 81 mg PO DAILY 08/06/17 [History] Cholecalciferol (Vitamin D3) [Vitamin D3] 2,000 unit PO DAILY 08/06/17 [History] Fluticasone Propionate [Flonase] 1 spray NASBOTH BID 08/06/17 [History] cycloSPORINE [Restasis] 1 each EYEBOTH BID 08/06/17 [History] carvediloL [Carvedilol] 25 mg PO BID 04/13/18 [History] Meclizine [Antivert] 25 mg PO Q6H PRN #12 tab 10/05/18 [Rx] Nitroglycerin 0.4 mg SL ASDIRECTED PRN 10/05/18 [History] Nystatin [Nystatin Crm] 1 appful TOP ASDIRECTED PRN 10/05/18 [History] Simvastatin [Zocor] 40 mg PO DAILY 10/05/18 [History] timoloL maleate [Timolol Maleate] 1 drop EYEBOTH DAILY 10/05/18 [History] Meclizine [Antivert] 25 mg PO Q6H PRN #20 tab.chew 02/03/19 [Rx] Past Medical History HEENT History: Reports: Glaucoma, Impaired Vision Cardiovascular History: Reports: High Cholesterol, Hypertension, NM Respiratory History: Reports: COPD Genitourinary History: Reports: Renal Calculus [employer] History: Reports: Polycystic Ovaries Other [employer] History: G0 Musculoskeletal History: Reports: Fibromyalgia Neurological History: Reports: Migraines Psychiatric History: Reports: Anxiety, Depression Endocrine/Metabolic History: Reports: Diabetes, Type II, Obesity/BMI 30+ Dermatologic History: Reports: Other (See Below) - Infectious Disease History Infectious Disease History: Reports: Chicken Pox, Shingles - Past Surgical History HEENT Surgical History: Reports: Adenoidectomy, Naso-Sinus Surgery, Oral Surgery , Tonsillectomy GI Surgical History: Reports: Appendectomy, Cholecystectomy, Colonoscopy Female Surgical History: Reports: Breast Reduction, Hysterectomy, Lithotripsy /ESWL, Salpingo-Oophorectomy, Ureteral Stent, Other (See Below) Other Female Surgeries/Procedures: bladder lift x 2 Musculoskeletal Surgical History: Reports: Carpal Tunnel, Knee Replacement, Other (See Below) Other Musculoskeletal Surgeries/Procedures:: L knee replacement, bilat carpal tunnel Dermatological Surgical History: Reports: Other (See Below) Social & Family History - Family History Family Medical History: Noncontributory - Caffeine Use Caffeine Use: Reports: Coffee ED ROS GENERAL - Review of Systems Review Of Systems: Unable To Obtain Reason Not Obtained: limited communication during active interventions ED EXAM, GENERAL - Physical Exam Exam: See Below Exam Limited By: Physical Impairment General Appearance: Alert, WD/WN, Moderate Distress, Obese Eye Exam: Bilateral Eye: EOMI, Normal Inspection, PERRL Ears: Normal External Exam Nose: Normal Inspection Throat/Mouth: Normal Inspection, Normal Oropharynx Head: Normocephalic Neck: Normal Inspection Respiratory/Chest: Lungs Clear, Chest Non-Tender Cardiovascular: No Edema, Bradycardia GI/Abdominal: Soft, Non-Tender, No Organomegaly, No Mass (Female) Exam: Deferred Rectal (Female) Exam: Deferred Back Exam: Normal Inspection Extremities: Normal Inspection Neurological: Alert, Oriented, CN II-XII Intact Psychiatric: Normal Affect, Anxious Skin Exam: Cool, Diaphoretic Lymphatic: No Adenopathy Course - Vital Signs Text/Narrative:: Following consult with [facility], she will be tranferred for cardiac pacing. - Orders/Labs/Meds Orders: Active Orders 24 hr Category Date Time Status EKG Documentation Completion [RC] ASDIRECTED Care 08/06/19 14:59 Ordered CBC WITH AUTO DIFF [HEME] Stat Lab 08/06/19 14:59 Ordered COMPREHENSIVE METABOLIC PN,CMP [CHEM] Stat Lab 08/06/19 14:59 Ordered TROPONIN I [CHEM] Stat Lab 08/06/19 14:59 Ordered EKG 12 Lead [EK] Routine Ther 08/06/19 14:59 Ordered Departure - Departure Time of Disposition: 15:00 Disposition: DC/Tfer to Other 70 Reason for Transfer *Q: Primary PCI Indicated Condition: Poor Clinical Impression: Third degree heart block Referrals: Chris St MD [Primary Care Provider] - Forms: ED Department Discharge - Problem List & Annotations (1) Third degree heart block SNOMED Code(s): 87271329 Code(s): I44.2 - ATRIOVENTRICULAR BLOCK, COMPLETE Status: Acute Annotation/Comment:: Tranfer to [facility] for cardiac pacing. - Problem List Review Problem List Initiated/Reviewed/Updated: Yes - My Orders Last 24 Hours: My Active Orders 08/06/19 14:59 EKG Documentation Completion [RC] ASDIRECTED CBC WITH AUTO DIFF [HEME] Stat COMPREHENSIVE METABOLIC PN,CMP [CHEM] Stat TROPONIN I [CHEM] Stat EKG 12 Lead [EK] Routine - Assessment/Plan Last 24 Hours: My Active Orders 08/06/19 14:59 EKG Documentation Completion [RC] ASDIRECTED CBC WITH AUTO DIFF [HEME] Stat COMPREHENSIVE METABOLIC PN,CMP [CHEM] Stat TROPONIN I [CHEM] Stat EKG 12 Lead [EK] Routine Plan: Follow up with PCP.
[2019-08-06 17:44] VITALS: BP 139/75; PULSE 75
[2019-08-06] MEDS ORDERED: Atropine 0.4 MG/ML SDV IVPUSH PRN (17:52)
== END 2019-08-06 15:26 | disposition other institution (70) ==
LOC: FB.ED 14:19
DX: I44.2 Atrioventricular block, complete (principal); I10 Essential (primary) hypertension; E78.00 Pure hypercholesterolemia, unspecified; I25.2 Old myocardial infarction; J44.9 Chronic obstructive pulmonary disease, unspecified; F41.9 Anxiety disorder, unspecified; F32.9 Major depressive disorder, single episode, unspecified; E66.9 Obesity, unspecified; Z68.1 Body mass index [BMI] 19.9 or less, adult; E11.9 Type 2 diabetes mellitus without complications; Z88.8 Allergy status to other drugs, medicaments and biological substances; Z88.2 Allergy status to sulfonamides; Z79.899 Other long term (current) drug therapy; Z79.82 Long term (current) use of aspirin; Z79.84 Long term (current) use of oral hypoglycemic drugs
CPT/HCPCS: 36415; 80053; 84484; 85025; 96365; 96375; 99285; J0461; J1265; J2405; J3010; J7030

== ENCOUNTER 2021-10-08 17:52 | Emergency (ER) | payer MEDICARE, OTHER ==
[2021-10-08] MEDS ORDERED: Ketorolac 10 MG Tab PO ONE (17:53)
[2021-10-08] MEDS ORDERED: Ketorolac 30 MG/ML SDV IM ONE (18:20)
[2021-10-08 20:33] VITALS: BP 137/88; PULSE 93
== END 2021-10-08 19:00 | disposition home or self-care (01) ==
LOC: FB.ED 17:52
DX: S80.01XA Contusion of right knee, initial encounter (principal); S60.222A Contusion of left hand, initial encounter; J44.9 Chronic obstructive pulmonary disease, unspecified; E78.00 Pure hypercholesterolemia, unspecified; I25.2 Old myocardial infarction; I10 Essential (primary) hypertension; E11.9 Type 2 diabetes mellitus without complications; E66.9 Obesity, unspecified; Z68.30 Body mass index [BMI] 30.0-30.9, adult; Z90.49 Acquired absence of other specified parts of digestive tract; Z90.710 Acquired absence of both cervix and uterus; Z79.899 Other long term (current) drug therapy; Z79.84 Long term (current) use of oral hypoglycemic drugs; Z79.82 Long term (current) use of aspirin; Z88.1 Allergy status to other antibiotic agents; Z88.2 Allergy status to sulfonamides; W18.39XA Other fall on same level, initial encounter
CPT/HCPCS: 96372; 99283; A9270; J1885; 99282

== ENCOUNTER 2022-04-25 09:05 | Day surgery (SDC) | payer MEDICARE, OTHER ==
[~2022-04-25 09:05] MED LIST: Lactated Ringers 1,000 ML IV PRN; Sodium Chloride 0.9% 10 ML Syringe FLUSH PRN
[2022-04-25] MEDS ORDERED: Midazolam 1 MG/ML 2 ML SDV IV ONE (09:06)
[2022-04-25] MEDS ORDERED: fentaNYL 100 MCG/2 ML SDV IV ONE (09:06)
[2022-04-25] MEDS ORDERED: acetaZOLAMIDE 500 MG Cap.ER PO ONE (09:30)
[2022-04-25 14:11] VITALS: BP 146/63; PULSE 62
== END 2022-04-25 11:20 | disposition home or self-care (01) ==
LOC: FB.SDS 09:05
PROVIDERS: ATTEND Ophthalmology
DX: E11.36 Type 2 diabetes mellitus with diabetic cataract (principal); H25.813 Combined forms of age-related cataract, bilateral; H40.1131 Primary open-angle glaucoma, bilateral, mild stage; H16.223 Keratoconjunctivitis sicca, not specified as Sjogren's, bilateral; H35.033 Hypertensive retinopathy, bilateral; I10 Essential (primary) hypertension; E11.65 Type 2 diabetes mellitus with hyperglycemia; F41.9 Anxiety disorder, unspecified; M17.12 Unilateral primary osteoarthritis, left knee; F32.A Depression, unspecified; E78.5 Hyperlipidemia, unspecified; E66.9 Obesity, unspecified; Z88.2 Allergy status to sulfonamides; Z79.899 Other long term (current) drug therapy; Z88.5 Allergy status to narcotic agent; Z88.1 Allergy status to other antibiotic agents; Z90.49 Acquired absence of other specified parts of digestive tract; Z98.890 Other specified postprocedural states; Z90.710 Acquired absence of both cervix and uterus; Z87.891 Personal history of nicotine dependence; Z68.32 Body mass index [BMI] 32.0-32.9, adult
CPT/HCPCS: 00142-QZ; 82947; A9270-GY; J2250; J3010; J7120; V2632

== ENCOUNTER 2022-06-06 06:46 | Day surgery (SDC) | payer MEDICARE, OTHER ==
[~2022-06-06 06:46] MED LIST changes: -Lactated Ringers 1,000 ML IV PRN; +Lactated Ringers 1,000 ML IV SCH; -Sodium Chloride 0.9% 10 ML Syringe FLUSH PRN; +acetaZOLAMIDE 500 MG Cap.ER PO ONE
[2022-06-06] MEDS ORDERED: Midazolam 1 MG/ML 2 ML SDV IV ONE (06:47)
[2022-06-06] MEDS ORDERED: fentaNYL 100 MCG/2 ML SDV IV ONE (06:47)
[2022-06-06] MEDS: Sodium Chloride 0.9% 10 ML Syringe FLUSH PRN (07:55)
[2022-06-06] MEDS: Lactated Ringers 1,000 ML IV SCH (07:57)
[2022-06-06] MEDS: acetaZOLAMIDE 500 MG Cap.ER PO ONE (09:32)
[2022-06-06 13:51] VITALS: BP 170/90; PULSE 63
== END 2022-06-06 09:50 | disposition home or self-care (01) ==
LOC: FB.SDS 06:46
PROVIDERS: ATTEND Ophthalmology
DX: E11.36 Type 2 diabetes mellitus with diabetic cataract (principal); H25.813 Combined forms of age-related cataract, bilateral; H40.1131 Primary open-angle glaucoma, bilateral, mild stage; H16.223 Keratoconjunctivitis sicca, not specified as Sjogren's, bilateral; H35.033 Hypertensive retinopathy, bilateral; I10 Essential (primary) hypertension; Z95.1 Presence of aortocoronary bypass graft; Z79.899 Other long term (current) drug therapy; Z88.2 Allergy status to sulfonamides; Z88.1 Allergy status to other antibiotic agents; Z88.8 Allergy status to other drugs, medicaments and biological substances; Z88.6 Allergy status to analgesic agent
CPT/HCPCS: 00142-QZ; 82947; A9270-GY; J2250; J3010; J3490; J7120; V2632

== ENCOUNTER 2022-09-08 12:33 | Emergency (ER) | payer MEDICARE, OTHER ==
[2022-09-08] MEDS ORDERED: Ketorolac 30 MG/ML SDV IM ONE (13:29)
[2022-09-08 15:06] VITALS: BP 164/83; PULSE 63
== END 2022-09-08 14:00 | disposition home or self-care (01) ==
LOC: FB.ED 12:33
DX: M19.011 Primary osteoarthritis, right shoulder (principal); E78.00 Pure hypercholesterolemia, unspecified; E11.9 Type 2 diabetes mellitus without complications; E66.9 Obesity, unspecified; Z68.30 Body mass index [BMI] 30.0-30.9, adult; Z79.84 Long term (current) use of oral hypoglycemic drugs; Z87.891 Personal history of nicotine dependence; Z95.0 Presence of cardiac pacemaker; Z88.1 Allergy status to other antibiotic agents; Z88.5 Allergy status to narcotic agent; Z88.2 Allergy status to sulfonamides; Z88.8 Allergy status to other drugs, medicaments and biological substances; Z79.82 Long term (current) use of aspirin; Z79.899 Other long term (current) drug therapy
CPT/HCPCS: 73030-RT; 96372; 99283; J1885

== ENCOUNTER 2022-09-23 14:41 | Emergency (ER) | payer MEDICARE, OTHER ==
[2022-09-23 16:00] LABS: BASOPHILS ABSOLUTE AUTO 0.1 x10-3/uL (0.0-0.1); BASOPHILS PERCENT AUTO 0.8 % (0.2-1.5); EOSINOPHILS ABSOLUTE AUTO 0.2 x10-3/uL (0.0-0.8); EOSINOPHILS PERCENT AUTO 2.7 % (0.6-8.1); HEMATOCRIT 35.4 % (34.2-48.2); HEMOGLOBIN 11.5 g/dL (11.4-15.5); LYMPHOCYTES ABSOLUTE AUTO 1.4 x10-3/uL (1.0-4.4); LYMPHOCYTES PERCENT AUTO 22.6 % (18.4-52.1); MEAN CORPUSCULAR HEMOGLOBIN 29.7 pg (23.9-33.9); MEAN CORPUSCULAR HGB CONC 32.5 g/dL (31.9-34.8); MEAN CORPUSCULAR VOLUME 91.4 fL (76.7-100.5); MEAN PLATELET VOLUME 7.3 fL (7.1-12.4); MONOCYTES ABSOLUTE AUTO 0.4 x10-3/uL (0.3-1.0); MONOCYTES PERCENT AUTO 6.5 % (4.4-15.7); NEUTROPHILS ABSOLUTE AUTO 4.3 x10-3/uL (1.5-6.3); NEUTROPHILS PERCENT AUTO 67.4 % (30.8-76.2); PLATELET COUNT,PLT 250 x10(3)uL (151-488); RED BLOOD CELL COUNT 3.87 x10(6)uL (3.60-5.20); RED CELL DISTRIBUTION WIDTH 14.9 % (12.3-16.5); WHITE BLOOD CELL COUNT,WBC 6.3 x10-3/uL (3.0-10.3)
[2022-09-23 16:04] LABS: BILIRUBIN,URINE NEGATIVE (NEGATIVE); GLUCOSE,URINE NORMAL (NORMAL); KETONES,URINE NEGATIVE (NEGATIVE); LEUKOCYTE ESTERASE,URINE NEGATIVE (NEGATIVE); NITRITE,URINE NEGATIVE (NEGATIVE); OCCULT BLOOD,URINE NEGATIVE (NEGATIVE); PROTEIN,URINE NEGATIVE (NEGATIVE); UROBILINOGEN,URINE NORMAL (NEGATIVE)
[2022-09-23 16:07] LABS: APPEARANCE,URINE CLEAR (CLEAR); BACTERIA,URINE RARE (NS); COLOR,URINE YELLOW (YELLOW); RBC,URINE 0-5 (0-5); SQUAMOUS EPITHELIAL CELLS,UR FEW (NS,R,O); WBC,URINE 0-5 (0-5)
[2022-09-23 16:09] LABS: BLOOD UREA NITROGEN,BUN 27 mg/dL (7-18); CALCIUM 9.4 mg/dL (8.6-10.2); CARBON DIOXIDE,CO2 29 mmol/L (21-32); CHLORIDE,CL 102 mmol/L (100-110); ESTIMATED GFR 62 mL/min (>60); GLUCOSE RANDOM 125 mg/dL (80-116); POTASSIUM,K 4.1 mmol/L (3.5-5.3); SODIUM,NA 138 mmol/L (135-145)
[2022-09-23 16:15] LABS: A/G RATIO 1.1; ALANINE AMINOTRANSFERASE,ALT 15 U/L (12-36); ALBUMIN 3.7 g/dL (3.2-4.6); ALKALINE PHOSPHATASE 60 IU/L (56-112); ASPARTATE AMNIOTRANSFERASE,AST 16 IU/L (5-25); BILIRUBIN TOTAL 0.4 mg/dL (0.1-1.3); MAGNESIUM 1.5 mg/dL (1.8-2.5)
[2022-09-23 16:22] LABS: TROPONIN I 4.9 pg/mL (4.0-60.3)
[2022-09-23 21:36] VITALS: BP 161/68; PULSE 73
== END 2022-09-23 17:47 | disposition home or self-care (01) ==
LOC: MERGE 14:41 → FB.ED 14:41
DX: M25.511 Pain in right shoulder (principal); R53.1 Weakness; T42.6X5A Adverse effect of other antiepileptic and sedative-hypnotic drugs, initial encounter
CPT/HCPCS: 36415; 80053; 81001; 83735; 83880; 84484; 85025; 93005; 99283

== ENCOUNTER 2022-11-29 04:29 | Emergency (ER) | payer MEDICARE, OTHER ==
[2022-11-29 05:26] LABS: BASOPHILS ABSOLUTE AUTO 0.1 x10-3/uL (0.0-0.1); BASOPHILS PERCENT AUTO 0.9 % (0.2-1.5); EOSINOPHILS ABSOLUTE AUTO 0.2 x10-3/uL (0.0-0.8); EOSINOPHILS PERCENT AUTO 3.5 % (0.6-8.1); HEMATOCRIT 35.4 % (34.2-48.2); HEMOGLOBIN 11.6 g/dL (11.4-15.5); LYMPHOCYTES ABSOLUTE AUTO 1.5 x10-3/uL (1.0-4.4); LYMPHOCYTES PERCENT AUTO 22.7 % (18.4-52.1); MEAN CORPUSCULAR HEMOGLOBIN 29.6 pg (23.9-33.9); MEAN CORPUSCULAR HGB CONC 32.9 g/dL (31.9-34.8); MEAN PLATELET VOLUME 7.6 fL (7.1-12.4); MONOCYTES ABSOLUTE AUTO 0.6 x10-3/uL (0.3-1.0); MONOCYTES PERCENT AUTO 9.4 % (4.4-15.7); NEUTROPHILS ABSOLUTE AUTO 4.1 x10-3/uL (1.5-6.3); NEUTROPHILS PERCENT AUTO 63.5 % (30.8-76.2); PLATELET COUNT,PLT 225 x10(3)uL (151-488); RED BLOOD CELL COUNT 3.93 x10(6)uL (3.60-5.20); RED CELL DISTRIBUTION WIDTH 14.8 % (12.3-16.5); WHITE BLOOD CELL COUNT,WBC 6.5 x10-3/uL (3.0-10.3)
[2022-11-29 05:30] LABS: BLOOD UREA NITROGEN,BUN 17 mg/dL (7-18); CALCIUM 9.2 mg/dL (8.6-10.2); CARBON DIOXIDE,CO2 26 mmol/L (21-32); CHLORIDE,CL 102 mmol/L (100-110); EST CRCL DRUG DOSING (CG) 47.79 mL/min; ESTIMATED GFR 62 mL/min (>60); GLUCOSE RANDOM 203 mg/dL (80-116); POTASSIUM,K 4.1 mmol/L (3.5-5.3); SODIUM,NA 139 mmol/L (135-145)
[2022-11-29 05:35] LABS: BILIRUBIN,URINE NEGATIVE (NEGATIVE); GLUCOSE,URINE NORMAL (NORMAL); KETONES,URINE NEGATIVE (NEGATIVE); LEUKOCYTE ESTERASE,URINE SMALL (NEGATIVE); NITRITE,URINE NEGATIVE (NEGATIVE); OCCULT BLOOD,URINE NEGATIVE (NEGATIVE); PROTEIN,URINE NEGATIVE (NEGATIVE); UROBILINOGEN,URINE NORMAL (NEGATIVE)
[2022-11-29 05:35] LABS: ALANINE AMINOTRANSFERASE,ALT 18 U/L (12-36); ALBUMIN 3.5 g/dL (3.2-4.6); ALKALINE PHOSPHATASE 65 IU/L (56-112); ASPARTATE AMNIOTRANSFERASE,AST 17 IU/L (5-25); BILIRUBIN TOTAL 0.2 mg/dL (0.1-1.3); PROTEIN TOTAL,TP 6.9 g/dL (6.0-8.0)
[2022-11-29 05:40] LABS: MAGNESIUM 1.2 mg/dL (1.8-2.5)
[2022-11-29] MEDS ORDERED: Magnesium Oxide 400 MG Tab PO ONE (05:44)
[2022-11-29 05:49] LABS: APPEARANCE,URINE SLIGHTLY CLOUDY (CLEAR); COLOR,URINE YELLOW (YELLOW)
[2022-11-29 05:50] LABS: BACTERIA,URINE FEW (NS); MUCUS,URINE FEW (NS); RBC,URINE 0-5 (0-5); SQUAMOUS EPITHELIAL CELLS,UR MODERATE (NS,R,O)
[2022-11-29 05:58] VITALS: BP 148/92; PULSE 73
== END 2022-11-29 06:38 | disposition home or self-care (01) ==
LOC: FB.ED 04:29
DX: R42 Dizziness and giddiness (principal); E83.42 Hypomagnesemia; I10 Essential (primary) hypertension; E78.00 Pure hypercholesterolemia, unspecified; E11.9 Type 2 diabetes mellitus without complications; E66.9 Obesity, unspecified; Z68.34 Body mass index [BMI] 34.0-34.9, adult; Z88.1 Allergy status to other antibiotic agents; Z88.5 Allergy status to narcotic agent; Z88.2 Allergy status to sulfonamides; Z88.8 Allergy status to other drugs, medicaments and biological substances; Z79.84 Long term (current) use of oral hypoglycemic drugs; Z79.899 Other long term (current) drug therapy
CPT/HCPCS: 36415; 80053; 81001; 83735; 85025; 93005; 99283; A9270-GY

== ENCOUNTER 2023-03-14 13:17 | Emergency (ER) | payer MEDICARE, OTHER ==
[2023-03-14 15:09] VITALS: BP 161/72; PULSE 68
== END 2023-03-14 14:00 | disposition home or self-care (01) ==
LOC: FB.ED 13:17
DX: R26.81 Unsteadiness on feet (principal); I10 Essential (primary) hypertension; E78.00 Pure hypercholesterolemia, unspecified; E11.9 Type 2 diabetes mellitus without complications; E66.9 Obesity, unspecified; Z68.32 Body mass index [BMI] 32.0-32.9, adult; Z88.1 Allergy status to other antibiotic agents; Z88.5 Allergy status to narcotic agent; Z88.2 Allergy status to sulfonamides; Z88.8 Allergy status to other drugs, medicaments and biological substances; Z79.899 Other long term (current) drug therapy; Z79.84 Long term (current) use of oral hypoglycemic drugs; Z98.890 Other specified postprocedural states
CPT/HCPCS: 99283

== ENCOUNTER 2023-06-22 00:48 | Emergency (ER) | payer MEDICARE, OTHER ==
[2023-06-22] MEDS: amLODIPine 10 MG Tab PO STA (01:07)
[2023-06-22 01:18] LABS: BASOPHILS PERCENT AUTO 0.8 % (0.2-1.5); EOSINOPHILS ABSOLUTE AUTO 0.1 x10-3/uL (0.0-0.8); EOSINOPHILS PERCENT AUTO 2.1 % (0.6-8.1); HEMATOCRIT 35.4 % (34.2-48.2); LYMPHOCYTES ABSOLUTE AUTO 1.9 x10-3/uL (1.0-4.4); LYMPHOCYTES PERCENT AUTO 30.8 % (18.4-52.1); MEAN CORPUSCULAR HEMOGLOBIN 29.8 pg (23.9-33.9); MEAN CORPUSCULAR VOLUME 87.7 fL (76.7-100.5); MEAN PLATELET VOLUME 7.7 fL (7.1-12.4); MONOCYTES ABSOLUTE AUTO 0.5 x10-3/uL (0.3-1.0); MONOCYTES PERCENT AUTO 7.8 % (4.4-15.7); NEUTROPHILS ABSOLUTE AUTO 3.7 x10-3/uL (1.5-6.3); NEUTROPHILS PERCENT AUTO 58.5 % (30.8-76.2); PLATELET COUNT,PLT 194 x10(3)uL (151-488); RED BLOOD CELL COUNT 4.04 x10(6)uL (3.60-5.20); RED CELL DISTRIBUTION WIDTH 15.2 % (12.3-16.5); WHITE BLOOD CELL COUNT,WBC 6.3 x10-3/uL (3.0-10.3)
[2023-06-22 01:21] LABS: BLOOD UREA NITROGEN,BUN 23 mg/dL (7-18); BUN/CREATININE RATIO 19.2 (9-20); CALCIUM 9.2 mg/dL (8.6-10.2); CARBON DIOXIDE,CO2 27 mmol/L (21-32); CHLORIDE,CL 101 mmol/L (100-110); CREATININE 1.2 mg/dL (0.55-1.02); ESTIMATED GFR 50 mL/min (>60); GLUCOSE RANDOM 164 mg/dL (80-116); POTASSIUM,K 4.2 mmol/L (3.5-5.3); SODIUM,NA 139 mmol/L (135-145)
[2023-06-22 01:27] LABS: A/G RATIO 1.2; ALANINE AMINOTRANSFERASE,ALT 18 U/L (12-36); ALBUMIN 3.7 g/dL (3.2-4.6); ALKALINE PHOSPHATASE 59 IU/L (56-112); ASPARTATE AMNIOTRANSFERASE,AST 16 IU/L (5-25); BILIRUBIN TOTAL 0.3 mg/dL (0.1-1.3); PROTEIN TOTAL,TP 6.8 g/dL (6.0-8.0)
[2023-06-22] MEDS: Atropine/Diphenoxylate 0.025-2.5 MG Tab PO ONE (01:51)
[2023-06-22] MEDS: LORazepam 2 MG/ML SDV IVPUSH ONE (02:01)
[2023-06-22] MEDS: hydrALAZINE 20 MG/ML SDV IVPUSH ONE (02:03)
[2023-06-22 02:41] VITALS: BP 182/82; PULSE 79
== END 2023-06-22 03:08 | disposition home or self-care (01) ==
LOC: FB.ED 00:48
DX: I10 Essential (primary) hypertension (principal); E86.0 Dehydration; E78.00 Pure hypercholesterolemia, unspecified; E11.9 Type 2 diabetes mellitus without complications; Z79.84 Long term (current) use of oral hypoglycemic drugs; Z79.899 Other long term (current) drug therapy; Z88.5 Allergy status to narcotic agent; Z88.1 Allergy status to other antibiotic agents; Z88.2 Allergy status to sulfonamides; Z88.6 Allergy status to analgesic agent
CPT/HCPCS: 80053; 83880; 84484; 85025; 93005; 93010; 96374; 96375; 99283; 99284; A9270; J0360; J2060

== ENCOUNTER 2024-05-26 08:40 | Emergency (ER) | payer MEDICARE, OTHER ==
[2024-05-26 09:00] VITALS: BP 150/84; PULSE 75
[2024-05-26 09:38] LABS: BASOPHILS PERCENT AUTO 0.2 % (0.2-1.5); EOSINOPHILS PERCENT AUTO 0.6 % (0.6-8.1); HEMOGLOBIN 13.2 g/dL (11.4-15.5); LYMPHOCYTES ABSOLUTE AUTO 1.2 x10-3/uL (1.0-4.4); LYMPHOCYTES PERCENT AUTO 16.7 % (18.4-52.1); MEAN CORPUSCULAR HEMOGLOBIN 31.8 pg (23.9-33.9); MEAN CORPUSCULAR HGB CONC 33.8 g/dL (31.9-34.8); MEAN CORPUSCULAR VOLUME 94.3 fL (76.7-100.5); MEAN PLATELET VOLUME 7.3 fL (7.1-12.4); MONOCYTES ABSOLUTE AUTO 0.4 x10-3/uL (0.3-1.0); MONOCYTES PERCENT AUTO 5.5 % (4.4-15.7); NEUTROPHILS ABSOLUTE AUTO 5.4 x10-3/uL (1.5-6.3); PLATELET COUNT,PLT 209 x10(3)uL (151-488); RED BLOOD CELL COUNT 4.14 x10(6)uL (3.60-5.20); RED CELL DISTRIBUTION WIDTH 14.6 % (12.3-16.5)
[2024-05-26 09:41] LABS: BLOOD UREA NITROGEN,BUN 15 mg/dL (7-18); BUN/CREATININE RATIO 16.7 (9-20); CALCIUM 9.9 mg/dL (8.6-10.2); CARBON DIOXIDE,CO2 29 mmol/L (21-32); CHLORIDE,CL 97 mmol/L (100-110); CREATININE 0.9 mg/dL (0.55-1.02); EST CRCL DRUG DOSING (CG) 51.28 mL/min; ESTIMATED GFR 70 mL/min (>60); GLUCOSE RANDOM 207 mg/dL (80-116); SODIUM,NA 137 mmol/L (135-145)
[2024-05-26 09:47] LABS: A/G RATIO 1.1; ALANINE AMINOTRANSFERASE,ALT 30 U/L (12-36); ALBUMIN 3.7 g/dL (3.2-4.6); ALKALINE PHOSPHATASE 77 IU/L (56-112); ASPARTATE AMNIOTRANSFERASE,AST 13 IU/L (5-25); BILIRUBIN TOTAL 0.3 mg/dL (0.1-1.3); MAGNESIUM 1.4 mg/dL (1.8-2.5); PROTEIN TOTAL,TP 7.2 g/dL (6.0-8.0)
[2024-05-26 09:50] LABS: LACTIC ACID 1.1 mmol/L (0.4-2.0)
== END 2024-05-26 10:25 | disposition home or self-care (01) ==
LOC: FB.ED 08:40
DX: E11.65 Type 2 diabetes mellitus with hyperglycemia (principal); E83.42 Hypomagnesemia; I10 Essential (primary) hypertension; E78.00 Pure hypercholesterolemia, unspecified; Z95.0 Presence of cardiac pacemaker; Z90.49 Acquired absence of other specified parts of digestive tract; Z88.1 Allergy status to other antibiotic agents; Z88.8 Allergy status to other drugs, medicaments and biological substances; Z88.5 Allergy status to narcotic agent; Z88.2 Allergy status to sulfonamides; Z79.84 Long term (current) use of oral hypoglycemic drugs; Z87.891 Personal history of nicotine dependence
CPT/HCPCS: 36415; 80053; 83605; 83735; 85025; 99284

== ENCOUNTER 2024-12-19 17:49 | Emergency (ER) | payer MEDICARE, OTHER ==
[2024-12-19 18:34] VITALS: BP 120/71; PULSE 70
== END 2024-12-19 20:37 | disposition home or self-care (01) ==
LOC: FB.ED 17:49
DX: S29.012A Strain of muscle and tendon of back wall of thorax, initial encounter (principal); E78.00 Pure hypercholesterolemia, unspecified; I10 Essential (primary) hypertension; Z95.0 Presence of cardiac pacemaker; E11.9 Type 2 diabetes mellitus without complications; Z88.5 Allergy status to narcotic agent; Z88.8 Allergy status to other drugs, medicaments and biological substances; Z88.1 Allergy status to other antibiotic agents; Z88.2 Allergy status to sulfonamides; Z79.84 Long term (current) use of oral hypoglycemic drugs; Z79.899 Other long term (current) drug therapy; Z79.85 Long-term (current) use of injectable non-insulin antidiabetic drugs; W01.0XXA Fall on same level from slipping, tripping and stumbling without subsequent striking against object, initial encounter; Y93.89 Activity, other specified
CPT/HCPCS: 72100; 72220; 73502; 99283; A9270

== ENCOUNTER 2025-03-14 12:42 | Emergency (ER) | payer MEDICARE, OTHER ==
[2025-03-14 13:34] LABS: BLOOD UREA NITROGEN,BUN 22 mg/dL (7-18); CARBON DIOXIDE,CO2 31 mmol/L (21-32); CHLORIDE,CL 98 mmol/L (100-110); CREATININE 1.1 mg/dL (0.55-1.02); ESTIMATED GFR 55 mL/min (>60); GLUCOSE RANDOM 106 mg/dL (80-116); POTASSIUM,K 4.6 mmol/L (3.5-5.3); SODIUM,NA 134 mmol/L (135-145)
[2025-03-14 13:56] VITALS: BP 147/72; PULSE 67
== END 2025-03-14 13:56 | disposition home or self-care (01) ==
LOC: FB.ED 12:42
DX: R29.898 Other symptoms and signs involving the musculoskeletal system (principal); I10 Essential (primary) hypertension; E11.9 Type 2 diabetes mellitus without complications; E66.9 Obesity, unspecified; E78.00 Pure hypercholesterolemia, unspecified; Z95.0 Presence of cardiac pacemaker; Z90.710 Acquired absence of both cervix and uterus; Z88.5 Allergy status to narcotic agent; Z88.1 Allergy status to other antibiotic agents; Z88.2 Allergy status to sulfonamides; Z88.6 Allergy status to analgesic agent; Z79.84 Long term (current) use of oral hypoglycemic drugs; Z79.899 Other long term (current) drug therapy; Z87.891 Personal history of nicotine dependence
CPT/HCPCS: 36415; 80048; 83735; 99284